=== PATIENT | male | born 1945 | race African-American/Black ===

== ENCOUNTER 2022-08-03 10:22 | Emergency (ER) | payer MEDICARE, OTHER ==
[~2022-08-03] VITALS: Ht 172.7 cm; Wt 75.0 kg
[~2022-08-03 10:22] MED LIST: ATOR10TA69 MT; LISI2.5T47 MT
[2022-08-03 10:28] VITALS: BP 170/65
[2022-08-03] MEDS ORDERED: ASPIRIN 81MG TABLET PO ONE ×2 (11:30→11:45)
[2022-08-03] MEDS ORDERED: ACETAMINOPHEN 500MG TABLET PO ONE (11:30)
[2022-08-03 15:21] LABS: BASOPHILS % 0.5 % (0.0-2.0); EOSINOPHILS % 1.9 % (0.0-5.0); HEMATOCRIT. 28.4 % (42.0-52.0); HEMOGLOBIN. 9.2 g/dL (14.0-18.0); LYMPHOCYTES % 23.6 % (20.0-50.0); MEAN CORPUSCULAR HEMOGLOBIN 32.8 pg (28.0-32.0); MEAN CORPUSCULAR VOLUME 100.6 fL (80.0-94.0); MEAN PLATELET VOLUME 8.7 fl (7.4-10.4); MONOCYTES % 5.8 % (2.0-8.0); NEUTROPHILS % 68.2 % (40.0-76.0); PLATELET 192 x1000/uL (130-400); RED BLOOD CELL COUNT 2.82 mill/uL (4.7-6.1)
[2022-08-03 15:22] LABS: CHLORIDE 109 mEq/L (98-107)
== END 2022-08-03 21:56 | disposition left against medical advice (07) ==
LOC: ER 10:22 → EDBEDREQ 14:25 → EDBEDREQTM 14:25 → EDBEDREQ 14:47 → ER 21:56
DX: R07.89 Other chest pain (principal); R94.31 Abnormal electrocardiogram [ECG] [EKG]; I10 Essential (primary) hypertension; E78.00 Pure hypercholesterolemia, unspecified; E11.9 Type 2 diabetes mellitus without complications
CPT/HCPCS: 36415; 71045; 80053; 83880; 84484; 85025; 93005; 99285

== ENCOUNTER 2025-03-22 15:55 | Emergency (ER) | payer MEDICARE, OTHER ==
[~2025-03-22] VITALS: Ht 175.3 cm; Wt 80.0 kg
[~2025-03-22 15:55] MED LIST changes: +AMLO10TA80 MT; -ATOR10TA69 MT; +ATOR20TA65 MT; +GABA-529 MT; +TAMS-54 PO
[2025-03-22 16:31] VITALS: TEMP 37; O2SAT 97
[2025-03-22] MEDS ORDERED: GUAI-450 MT (17:58)
[2025-03-22 18:29] VITALS: BP 138/54; PULSE 68; RESP 18; O2SAT 97
== END 2025-03-22 18:33 | disposition home or self-care (01) ==
LOC: ER 15:55
DX: J06.9 Acute upper respiratory infection, unspecified (principal); B97.89 Other viral agents as the cause of diseases classified elsewhere; R05.9 Cough, unspecified; E11.9 Type 2 diabetes mellitus without complications; E78.00 Pure hypercholesterolemia, unspecified; I10 Essential (primary) hypertension; Z79.899 Other long term (current) drug therapy
CPT/HCPCS: 71045; 99283

== ENCOUNTER 2025-04-20 13:43 | Emergency (ER) | payer MEDICARE ==
[~2025-04-20] VITALS: Ht 175.3 cm; Wt 79.0 kg
[~2025-04-20 13:43] MED LIST changes: +GUAI-450 MT
[2025-04-20 13:45] VITALS: O2SAT 99
[2025-04-20 14:17] VITALS: BP 184/70; PULSE 75; RESP 18; TEMP 36.7; O2SAT 96
[2025-04-20 15:50] LABS: BASOPHILS % 0.7 % (0.0-2.0); EOSINOPHILS % 2.3 % (0.0-5.0); HEMATOCRIT. 30.6 % (42.0-52.0); HEMOGLOBIN. 9.9 g/dL (14.0-18.0); LYMPHOCYTES % 30.2 % (20.0-50.0); MEAN PLATELET VOLUME 9.1 fl (7.4-10.4); MONOCYTES % 7.0 % (2.0-8.0); NEUTROPHILS % 59.8 % (40.0-76.0); PLATELET 104 x1000/uL (130-400); RED BLOOD CELL COUNT 3.15 mill/uL (4.7-6.1); RED CELL DISTRIBUTION WIDTH 16.6 % (11.6-14.6)
[2025-04-20 16:02] LABS: CREATININE 1.3 mg/dL (0.6-1.3)
[2025-04-20 16:03] LABS: UREA NITROGEN BLOOD 9 mg/dL (9-23)
[2025-04-20 16:04] LABS: ASPARTATE AMINOTRANSFERASE 14 IU/L (<34); TROPONIN I HIGH SENSITIVITY 5 ng/L (3.0-53)
[2025-04-20 16:05] LABS: BILIRUBIN DIRECT 0.7 mg/dL (<=3.0); BILIRUBIN TOTAL 1.9 mg/dL (0.1-1.0); PROTEIN TOTAL 6.6 g/dL (6.0-8.3)
== END 2025-04-20 17:03 | disposition home or self-care (01) ==
LOC: ER 13:43 → CANBEDREQ 16:52 → ER 17:03
DX: I10 Essential (primary) hypertension (principal); R03.0 Elevated blood-pressure reading, without diagnosis of hypertension; E11.9 Type 2 diabetes mellitus without complications; E78.00 Pure hypercholesterolemia, unspecified; Z79.899 Other long term (current) drug therapy
CPT/HCPCS: 36415; 80048; 80076; 84484; 85025; 99282